=== PATIENT | male | born 1985 | race Caucasian/White ===

== ENCOUNTER 2019-02-19 20:01 | Emergency (ER) | payer MEDICAID ==
[~2019-02-19] VITALS: Ht 177.8 cm; Wt 86.4 kg
[2019-02-19] MEDS ORDERED: CLIN-96 PO (20:23)
[2019-02-19] MEDS ORDERED: IBUP-1984 PO (20:23)
--- NOTE | 2019-02-19 20:26 | NUR ---
pt resting comfortbaly awaiting abx therapy
[2019-02-19 20:33] VITALS: BP 127/71
== END 2019-02-19 20:35 | disposition home or self-care (01) ==
LOC: ER 20:01
DX: K02.9 Dental caries, unspecified (principal); F12.90 Cannabis use, unspecified, uncomplicated; Z98.890 Other specified postprocedural states; Z88.1 Allergy status to other antibiotic agents; Z88.8 Allergy status to other drugs, medicaments and biological substances
CPT/HCPCS: 99283